=== PATIENT | female | born 1985 | race Caucasian/White ===

== ENCOUNTER 2016-12-28 21:52 | Emergency (ER) | payer OTHER ==
[~2016-12-28] VITALS: Ht 167.6 cm; Wt 100.0 kg
[~2016-12-28 21:52] MED LIST: BACT PO; FLON0.053; MECL25 PO; PRED20 PO; SPIR25; ZITH250T PO
[2016-12-28 21:54] VITALS: BP 156/93; PULSE 115; RESP 18; TEMP 99.3; O2SAT 99
--- NOTE | 2016-12-28 23:04 | PD ---
HPI Chief Complaint: Musculoskeletal Complaint Time Seen by Provider: 22:57 Travel History International Travel<30 days: No Contact w/Intl Traveler<30days: No Traveled to known affect area: No History of Present Illness HPI 31-year-old white female presents to emergency department with complaints of tingling sensation around her lips. She states that approximately 2 days ago she noticed some tingling in the back of her neck on the right side after going to exercise class. She states that she was lifting heavy tires and rolling him. She states that the tingling resolved spontaneously. She states that she had some tingling in the last day developed on the left side of her face in front of her ear involving her left cheek. She also had some twitching of her left eyebrow. She states that this is also when she developed tingling around her lips. She states that his not just on one side is on both. She denies any changes of sensation or taste on her tongue. No weakness in the forehead. No speech changes. No difficulty swallowing. No numbness or tingling in the extremities. No gait disturbance. No headache. She denies any recent illness. She denies hypertension, diabetes. No connective tissue disorders PFSH Past Medical History Medical History: Denies Significant Hx Diminished Hearing: No Tetanus Vaccination: < 5 Years ?: Not LMP: 2 WKS AGO Past Surgical History Cholecystectomy: Yes (2005) Social History Alcohol Use: No Tobacco Use: No Substance Use: No Allergies-Medications (Allergen,Severity, Reaction): Coded Allergies: No Known Allergies (Verified , 12/28/16) Reported Meds & Prescriptions Reported Meds & Active Scripts Active Deltasone (Prednisone) 20 Mg Tab 20 Mg PO BID 5 Days Zithromax Z-Hari (Azithromycin) 250 Mg Tab 250 Mg PO DIRECTED 5 Days 500 MG (2 TABLETS) PO ON DAY 1, THEN 250 MG (1 TABLET) PO ON DAYS 2 TO 5. Antivert (Meclizine HCl) 25 Mg Tab 25 Mg PO QIDPRN Flonase (Fluticasone Propionate) 0.05 % Naspr 2 Spr NA DAILY 2 SPRAYS EACH NOSTRIL Reported Bactrim (Trimethoprim/Sulfamethoxazole) 80 Mg/400 Mg Tab 1 Tab PO BID Aldactone (Spironolactone) 25 Mg Tab 0 UNKNOWN DOSE Review of Systems Except as stated in HPI: all other systems reviewed are Neg General / Constitutional: No: Fever, Chills Eyes: No: Diploplia, Blurred Vision, Photophobia, Visual changes HENT: No: Headaches, Neck Stiffness, Neck Pain Cardiovascular: No: Chest Pain or Discomfort, Palpitations Respiratory: No: Cough, Shortness of Breath Gastrointestinal: No: Nausea, Vomiting Genitourinary: No: Dysuria, Hematuria Musculoskeletal: No: Myalgias, Arthralgias Skin: No Rash, No Itching Neurologic: Positive: Paresthesia, Sensory Disturbance, No: Dizziness, Syncope , Tremor, Ataxia, Headache, Change in Mentation, Slurred Speech Physical Exam Narrative GENERAL: Well-developed, well-nourished in no apparent distress. Nontoxic appearing. HEAD: Normocephalic, atraumatic. EYES: Pupils equal round and reactive. Extraocular motions intact. No scleral icterus. No injection or drainage. No pupil irregularity ENT: Nose clear. Throat without erythema, tonsillar hypertrophy or exudate. Uvula midline. Airway patent. NECK: Trachea midline. Supple, nontender, moves head freely. No central bony tenderness or spasm. No carotid bruits CARDIOVASCULAR: Regular rate and rhythm without murmurs, gallops, or rubs. RESPIRATORY: Clear to auscultation. Breath sounds equal bilaterally. No wheezes , rales, or rhonchi. GASTROINTESTINAL: Abdomen soft, non-tender, nondistended. No hepato-splenomegaly , or palpable masses. No guarding. EXTREMITIES: No clubbing, cyanosis, or edema. No joint tenderness. BACK: Nontender without deformity. No flank tenderness. NEUROLOGICAL: Awake, alert and oriented x 3 .Cranial nerves grossly intact. Motor and sensory grossly within normal limits. Normal speech. Normal gait. Normal tandem gait. Station and Romberg. Normal finger to nose. Data Data Last Documented VS Vital Signs Date Time Temp Pulse Resp B/P Pulse Ox O2 Delivery O2 Flow Rate FiO2 12/28/16 21:54 99.3 115 18 156/93 99 Room Air MDM Medical Decision Making Medical Screen Exam Complete: Yes Emergency Medical Condition: Yes Medical Record Reviewed: Yes Differential Diagnosis Differential diagnosis: Brain tumor, Null's palsy, cervical radiculopathy, carotid artery dissection, MS, anxiety Narrative Course The patient's exam is unremarkable. At this time I do not believe any secondary imaging or laboratory tests are indicated at this time. I expressed to the patient that more appropriate evaluation with MRI of the head and neck by her primary care doctor with referral to a neurologist would be the most appropriate evaluation and treatment. I did offer a CAT scan of the brain today which she has declined. I explained to her that there are multiple etiologies of her symptoms at this point there is no localizing complaints that I can determine is the etiology of her symptoms. She is aware that if symptoms worsen she may return for further evaluation treatment. She's been advised to follow-up with her doctor and have further outpatient evaluation and treatment. This paresthesias Diagnosis Primary Impression: Paresthesias Patient Instructions: General Instructions Additional Instructions: Rest. Increase fluids. Consider MRI of your head and neck. Consider follow-up with a neurologist. Follow-up with your doctor tomorrow. Call his office in the morning to arrange outpatient testing. Return to the ER if her symptoms continue to worsen or localize more. No strenuous activity until advised by her doctor to resume. Med/Other Pt SpecificInfo: No Meds Exist/No RX given Disposition: 01 DISCHARGE HOME Condition: Stable Felix Das Dec 28, 2016 23:04
== END 2016-12-28 23:20 | disposition home or self-care (01) ==
LOC: NEPB 21:52
DX: R20.8 Other disturbances of skin sensation (principal)
CPT/HCPCS: 99283